=== PATIENT | male | born 1945 | race Caucasian/White ===

== ENCOUNTER 2021-06-15 14:07 | Inpatient (IN) | payer MEDICARE, OTHER | END 2021-06-19 12:54 | disposition home or self-care (01) | DRG 375 | LOC: FER 14:07 → FTCU 20:51 → FMS 06-17 21:23 | PROVIDERS: ADMIT Internal Medicine | PROC: 0DB48ZX Excision of Esophagogastric Junction, Via Natural or Artificial Opening Endoscopic, Diagnostic (ICD-10-PCS; principal; 2021-06-18) | DX: C16.0 Malignant neoplasm of cardia (principal); N17.9 Acute kidney failure, unspecified; Z20.822 Contact with and (suspected) exposure to COVID-19; I10 Essential (primary) hypertension; E86.0 Dehydration; K80.20 Calculus of gallbladder without cholecystitis without obstruction; E11.40 Type 2 diabetes mellitus with diabetic neuropathy, unspecified; R62.7 Adult failure to thrive; R63.4 Abnormal weight loss; Z87.442 Personal history of urinary calculi; Z98.890 Other specified postprocedural states; Z82.49 Family history of ischemic heart disease and other diseases of the circulatory system; Z88.5 Allergy status to narcotic agent; Z79.84 Long term (current) use of oral hypoglycemic drugs; Z79.899 Other long term (current) drug therapy ==

== ENCOUNTER → 2021-07-21 | Emergency (ER) | payer MEDICARE, OTHER ==
[~2021-07-21] VITALS: Ht 182.9 cm; Wt 83.9 kg
[~2021-07-21] MED LIST: ACETAMINOPHEN500 M1 PO; COLESTID 1GM TAB1 GM PO; COLESTIPOL HCL1 GM PO; DEXAMETHASONE 4M4 MG PO; DULCOLAX5 M1 PO; GLIPIZIDE10 MG PO; HYDROCODON-ACE1 EAC2 PO; LASIX20 MG PO; LISINOPRIL10 MG PO; METFORMIN HCL500 M1 PO; METFORMIN HCL500 MG PO; MILK OF MA400 MG/5 M PO; MOTRIN600 MG PO; PANTOPRAZOLE SO40 MG PO; PRINIVIL10 MG PO; PROCHLORPERAZIN10 M1 PO; PROTONIX 40MG T40 MG PO; SINEQUAN10 MG PO; ULTRAM50 MG PO; VITAMIN D21250 MCG PO
== END | disposition home or self-care (01) ==
LOC: FER 13:17
DX: R41.0 Disorientation, unspecified (principal); E11.9 Type 2 diabetes mellitus without complications; I10 Essential (primary) hypertension; Z20.822 Contact with and (suspected) exposure to COVID-19
CPT/HCPCS: 93005; 99284